=== PATIENT | male | born 1930 | race Caucasian/White ===

== ENCOUNTER 2017-05-02 10:19 | Emergency (ER) | payer MEDICARE, BC ==
[2017-05-02 10:24] VITALS: BP 141/70
[2017-05-02] MEDS ORDERED: Albuterol/Ipratropium 3.0-0.5 MG/3 ML Neb Soln NEB ONE ×2 (11:17→11:19)
--- NOTE | 2017-05-02 11:27 | EDM.PDOC ---
ED HPI GENERAL MEDICAL PROBLEM - General Chief Complaint: General Stated Complaint: Sinus drainage, cough, fever Time Seen by Provider: 05/02/17 11:11 Source of Information: Reports: Patient, Family History Limitations: Reports: No Limitations - History of Present Illness INITIAL COMMENTS - FREE TEXT/NARRATIVE: This patient is an 86 year old male that presents to the ER. Patient has with him at bedside. Patient reports that about 2 weeks ago he started having congestion sinuses and drainage. He was placed on abx. Patent reports he did get some better, but then again on he began to have increased congestion, chest congestion, cough. Patient he saw his PCP on and was prescribed augmentin. Patient reports then yesterday he developed fever and increased chest congestion. The patient presents to the ER today complaining of generalized weakness, drainage, productive cough, chest congestion, mild shortness of breath. Patient is alert and oriented. He is conversing in full and complete sentences without difficulty. Patient is coughing a lot. Patient denies adame, dizziness, n, v, d, rash, chest pain, abd pain, urinary/bowel changes. Onset Date: 04/29/17 Duration: Getting Worse Location: Reports: Face, Chest Severity: Mild Improves with: Reports: None Worsens with: Reports: None Associated Symptoms: Reports: Cough, cough w sputum, Shortness of Breath, Weakness (generally). Denies: Confusion, Chest Pain, Diaphoresis, Fever/Chills , Headaches, Loss of Appetite, Malaise, Nausea/Vomiting, Rash, Seizure, Syncope Left Thoracic Pain Score (Numeric/FACES): 2 - Related Data Allergies Allergy/AdvReac Type Severity Reaction Status Date / Time No Known Allergies Allergy Verified 05/02/17 10:24 Home Meds: Home Meds Simvastatin [Simvastatin] 40 mg PO DAILY 09/18/14 [History] metFORMIN HCl [Metformin HCl] 850 mg PO DAILY 09/18/14 [History] Acetaminophen [Tylenol] 650 mg PO Q4H PRN 05/02/17 [History] Amoxicillin [Amoxil] 875 mg PO BID 05/02/17 [History] Aspirin [Adult Low Dose Aspirin EC] 81 mg PO DAILY 05/02/17 [History] Fluticasone Propionate [Flovent] 2 sprays NASBOTH DAILY PRN 05/02/17 [History] Hydrochlorothiazide 25 mg PO DAILY 05/02/17 [History] Ipratropium [place] 1 spray NASBOTH BID 05/02/17 [History] Metoprolol Tartrate 25 mg PO BID 05/02/17 [History] Multivitamin [Multi-Day Vitamins] 1 tab PO DAILY 05/02/17 [History] amLODIPine Besylate [Amlodipine Besylate] 10 mg PO DAILY 05/02/17 [History] Past Medical History HEENT History: Reports: Allergic Rhinitis, Cataract, Sinusitis Cardiovascular History: Reports: High Cholesterol, Hypertension Endocrine/Metabolic History: Reports: Diabetes, Type II Oncologic (Cancer) History: Reports: Prostate - Past Surgical History HEENT Surgical History: Reports: Cataract Surgery, Tonsillectomy Musculoskeletal Surgical History: Reports: Shoulder Surgery Social & Family History - Tobacco Use Smoking Status *Q: Never Smoker - Recreational Drug Use Recreational Drug Use: No ED ROS GENERAL - Review of Systems Review Of Systems: See Below Constitutional: Reports: Fever, Chills, Malaise, Weakness HEENT: Reports: Rhinitis, Sinus Problem Respiratory: Reports: Shortness of Breath, Cough, Sputum Cardiovascular: Reports: No Symptoms Endocrine: Reports: No Symptoms GI/Abdominal: Reports: No Symptoms : Reports: No Symptoms Musculoskeletal: Reports: No Symptoms Skin: Reports: No Symptoms Neurological: Reports: No Symptoms Psychiatric: Reports: No Symptoms Hematologic/Lymphatic: Reports: No Symptoms Immunologic: Reports: No Symptoms ED EXAM, GENERAL - Physical Exam Exam: See Below Exam Limited By: No Limitations General Appearance: Alert, WD/WN, No Apparent Distress Eye Exam: Bilateral Eye: Normal Inspection, PERRL Ears: Normal External Exam, Normal Canal, Hearing Grossly Normal, Normal TMs Ear Exam: Bilateral Ear: Auricle Normal, Canal Normal, TM normal Nose: Normal Inspection, Normal Mucosa, No Blood Throat/Mouth: Normal Inspection, Normal Lips, Normal Teeth, Normal Gums, Normal Oropharynx, Normal Voice, No Airway Compromise, Other (post nasal gtt. ) Head: Atraumatic, Normocephalic Neck: Normal Inspection, Supple, Non-Tender, Full Range of Motion Respiratory/Chest: No Respiratory Distress, No Accessory Muscle Use, Chest Non- Tender, Rhonchi (throughout. ), Wheezing (mild expiratory BUL. ). No: Accessory Muscle Use, Retractions, Splinting Cardiovascular: Normal Peripheral Pulses, Regular Rate, Rhythm, No Edema, No Gallop, No JVD, No Murmur, No Rub Peripheral Pulses: 2+: Radial (L), Radial (R), Posterior Tibial (L), Posterior Tibial (R) GI/Abdominal: Soft, Non-Tender, No Organomegaly, No Distention, No Mass Back Exam: Normal Inspection, Full Range of Motion Extremities: Normal Inspection, Normal Range of Motion, Non-Tender, No Pedal Edema, Normal Capillary Refill Neurological: Alert, Oriented, Normal Cognition, Normal Gait, No Motor/Sensory Deficits Psychiatric: Normal Affect, Normal Mood Skin Exam: Warm, Dry, Intact, Normal Color, No Rash Lymphatic: No Adenopathy Course - Vital Signs Last Recorded V/S: Last Vital Signs Temp 100.0 F 05/02/17 10:21 Pulse 74 05/02/17 10:21 Resp 20 05/02/17 10:21 BP 141/70 H 05/02/17 10:21 Pulse Ox 96 05/02/17 10:21 - Orders/Labs/Meds Orders: Active Orders 24 hr Category Date Time Status RT Aerosol Therapy [RC] ASDIRECTED Care 05/02/17 11:18 Active RT Aerosol Therapy [RC] ASDIRECTED Care 05/02/17 11:19 Active Chest 2V [CR] Stat Exams 05/02/17 10:41 Taken CULTURE BLOOD [BC] Stat Lab 05/02/17 11:10 Received CULTURE BLOOD [BC] Stat Lab 05/02/17 11:15 Received Albuterol [Take Home: Albuterol 0.083%, 4 Neb Pack] Med 05/02/17 11:51 Once 1 packet NEB ONETIME ONE Sodium Chloride 0.9% [Normal Saline] 500 ml Med 05/02/17 11:45 Active IV .BOLUS Blood Culture x2 Reflex Set [OM.PC] Stat Oth 05/02/17 10:41 Ordered Medication Orders Sodium Chloride (Normal Saline) 500 mls @ 1,000 mls/hr IV .BOLUS HERMES Labs: Laboratory Tests 05/02/17 05/02/17 05/02/17 Range/Units 11:10 11:10 11:10 WBC 6.0 (5.0-10.0) 10^3/uL RBC 4.79 (4.50-6.00) 10^6/uL Hgb 14.4 (14.0-18.0) g/dL Hct 41.7 (40.0-54.0) % MCV 87.1 (82.0-94.0) fL MCH 30.1 (27.0-32.0) pg MCHC 34.5 (33.0-38.0) g/dL RDW Coeff of Torsten 13.4 (11.0-15.0) % Plt Count 151 (150-400) 10^3/uL Neut % (Auto) 67.2 (35-85) % Lymph % (Auto) 13.0 (10-55) % [place] % (Auto) 16.8 H (0-16) % Eos % (Auto) 2.3 (0-5) % Baso % (Auto) 0.7 (0-3) % Neut # (Auto) 4.04 (1.80-7.00) 10^3/uL Lymph # (Auto) 0.78 L (1.00-4.80) 10^3/uL [place] # (Auto) 1.01 H (0.00-0.80) 10^3/uL Eos # (Auto) 0.14 (0.00-0.45) 10^3/uL Baso # (Auto) 0.04 10^3/uL Sodium 137 (136-145) mEq/L Potassium 3.8 (3.5-5.0) mEq/L Chloride 97 L (98-106) mEq/L Carbon Dioxide 32 (21-32) mmol/L BUN 18 (7-18) mg/dL Creatinine 1.5 H (0.7-1.3) mg/dL Est Cr Clr Drug Dosing 36.04 mL/min Estimated GFR (MDRD) 44 L (>=60) mL/min Glucose 146 H (75-99) mg/dL Lactic Acid 1.3 (0.4-2.0) mmol/L Calcium 9.3 (8.4-10.1) mg/dL Total Bilirubin 0.7 (0.0-1.0) mg/dL AST 20 (15-37) U/L ALT 24 (12-78) U/L Alkaline Phosphatase 63 (46-116) U/L C-Reactive Protein 2.1 H (0.2-0.8) mg/dL Total Protein 8.2 (6.4-8.2) g/dL Albumin 4.2 (3.4-5.0) g/dL Meds: Medications Generic Name Dose Route Start Last Admin Trade Name Freq PRN Reason Stop Dose Admin Sodium Chloride 500 mls @ 1,000 mls/hr 05/02/17 11:45 Normal Saline IV .BOLUS HERMES Discontinued Medications Generic Name Dose Route Start Last Admin Trade Name Freq PRN Reason Stop Dose Admin Albuterol/Ipratropium 3 ml 05/02/17 11:17 05/02/17 11:21 Duoneb 3.0-0.5 Mg/3 Ml NEB 05/02/17 11:18 3 ml ONETIME ONE Administration Albuterol/Ipratropium 3 ml 05/02/17 11:19 Duoneb 3.0-0.5 Mg/3 Ml NEB 05/02/17 11:20 ONETIME ONE Ceftriaxone Sodium 1 gm 05/02/17 11:42 Rocephin IVPUSH 05/02/17 11:43 ONETIME ONE Ibuprofen 800 mg 05/02/17 11:34 Motrin PO 05/02/17 11:35 ONETIME ONE Methylprednisolone Sodium Succinate 125 mg 05/02/17 11:41 Solu-Medrol IVPUSH 05/02/17 11:42 NOW STA - Radiology Interpretation Free Text/Narrative:: CXR: COPD changes. No focal infiltrates seen. No edema. Radiologist to view. - Re-Assessments/Exams Free Text/Narrative Re-Assessment/Exam: 05/02/17 11:52 Patient lungs after treatment are clear. Patient reports he is coughing much less and feels much improved. Will discharge. Departure - Departure Time of Disposition: 11:46 Disposition: Home, Self-Care 01 Condition: Fair Clinical Impression: Renal insufficiency, Generalized weakness Acute bronchitis Qualifiers: Bronchitis organism: unspecified organism Qualified Code(s): J20.9 - Acute bronchitis, unspecified - Discharge Information Instructions: Acute Bronchitis, [id number] Referrals: Prosper Sanchez MD [Primary Care Provider] - Forms: ED Department Discharge Additional Instructions: Followup with your primary care provider Return to the ER for worsening of condition or any emergent concerns Increase fluids Tylenol or Motrin for fever STOP Amoxicillin Levaquin 750mg 1 pill once a day for 7 days #7 no refill Medrol Dose Pack as directed #1 no refill Breathing treatment machine send home Duoneb 1 neb every 4-6 hours as needed for shortness of breath #60 no refill #4 take home - My Orders Last 24 Hours: My Active Orders 05/02/17 10:41 Chest 2V [CR] Stat Blood Culture x2 Reflex Set [OM.PC] Stat 05/02/17 11:10 CULTURE BLOOD [BC] Stat 05/02/17 11:15 CULTURE BLOOD [BC] Stat 05/02/17 11:18 RT Aerosol Therapy [RC] ASDIRECTED 05/02/17 11:19 RT Aerosol Therapy [RC] ASDIRECTED 05/02/17 11:45 Sodium Chloride 0.9% [Normal Saline] 500 ml IV .BOLUS 05/02/17 11:51 Albuterol [Take Home: Albuterol 0.083%, 4 Neb Pack] 1 packet NEB ONETIME ONE - Assessment/Plan Last 24 Hours: My Active Orders 05/02/17 10:41 Chest 2V [CR] Stat Blood Culture x2 Reflex Set [OM.PC] Stat 05/02/17 11:10 CULTURE BLOOD [BC] Stat 05/02/17 11:15 CULTURE BLOOD [BC] Stat 05/02/17 11:18 RT Aerosol Therapy [RC] ASDIRECTED 05/02/17 11:19 RT Aerosol Therapy [RC] ASDIRECTED 05/02/17 11:45 Sodium Chloride 0.9% [Normal Saline] 500 ml IV .BOLUS 05/02/17 11:51 Albuterol [Take Home: Albuterol 0.083%, 4 Neb Pack] 1 packet NEB ONETIME ONE Plan: PLEASE SEE RN NOTE FOR PFSH.
[2017-05-02] MEDS ORDERED: Ibuprofen 200 MG Tab PO ONE (11:34)
[2017-05-02] MEDS ORDERED: methylPREDNISolone Sodium Succinate 125 MG/2 ML SDV IVPUSH STA (11:41)
[2017-05-02] MEDS ORDERED: cefTRIAXone 1 GM Vial IVPUSH ONE (11:42)
[2017-05-02] MEDS ORDERED: Sodium Chloride 0.9% 500 ML IV SCH (11:45)
[2017-05-02] MEDS ORDERED: Take Home: Albuterol 0.083% 2.5 MG/3 ML Neb Soln, 4 Neb Pack NEB ONE (11:51)
== END 2017-05-02 13:07 | disposition home or self-care (01) ==
LOC: CC.ED 10:19
DX: J20.9 Acute bronchitis, unspecified (principal); R53.1 Weakness; N28.9 Disorder of kidney and ureter, unspecified; I10 Essential (primary) hypertension; E11.9 Type 2 diabetes mellitus without complications; E78.00 Pure hypercholesterolemia, unspecified; Z79.84 Long term (current) use of oral hypoglycemic drugs; Z79.899 Other long term (current) drug therapy; Z79.82 Long term (current) use of aspirin
CPT/HCPCS: 36415; 71020; 80053; 83605; 85025; 86140; 87040; 87804; 94640; 96361; 96374; 96375; 99284; A9270; J0696; J2930; J7040; 99283

== ENCOUNTER 2021-03-11 10:20 | Observation (INO) | payer MEDICARE, BC ==
[2021-03-11 11:14] VITALS: BP 102/64; PULSE 56
[2021-03-11] MEDS ORDERED: Sodium Chloride 0.9% 250 ML IV SCH (11:30)
--- NOTE | 2021-03-11 14:42 | EDM.PDOC ---
ED HPI GENERAL MEDICAL PROBLEM - General Chief Complaint: Syncope Stated Complaint: LIGHT HEADED EARLIER Time Seen by Provider: 03/11/21 10:44 Source of Information: Reports: Patient, Family History Limitations: Reports: No Limitations - History of Present Illness INITIAL COMMENTS - FREE TEXT/NARRATIVE: Emmie is an 89 yo male who presents to the ED, accompanied by family, with concerns of a presyncopal/syncopal episode. Emmie states he wasn't feeling right and was out in the shop with his son. Admits he decided to walk back to the house and felt as if he was going to pass out about half ways to the house. He states he lied down on the ground so he didn't pass out. Son thinks he did have a syncopal episode and fell to the ground. He admits he went out to help him make it the rest of the way to the house and was unsteady on his feet. Emmie states he doesn't feel that way anymore but just feels a little off. - Related Data Allergies Allergy/AdvReac Type Severity Reaction Status Date / Time No Known Allergies Allergy Verified 03/11/21 10:30 Home Meds: Home Meds Simvastatin 40 mg PO DAILY 09/18/14 [History] metFORMIN HCl [Metformin HCl] 850 mg PO DAILY 09/18/14 [History] Acetaminophen [Tylenol] 650 mg PO Q4H PRN 05/02/17 [History] Aspirin [Adult Low Dose Aspirin EC] 81 mg PO DAILY 05/02/17 [History] Ipratropium [place] 1 spray NASBOTH BID PRN 05/02/17 [History] Metoprolol Tartrate 25 mg PO BID 05/02/17 [History] Multivitamin [Multi-Day Vitamins] 1 tab PO DAILY 05/02/17 [History] amLODIPine Besylate [Amlodipine Besylate] 10 mg PO DAILY 05/02/17 [History] hydroCHLOROthiazide [Hydrochlorothiazide] 25 mg PO DAILY 05/02/17 [History] Past Medical History HEENT History: Reports: Allergic Rhinitis, Cataract, Hard of Hearing, Sinusitis Cardiovascular History: Reports: High Cholesterol, Hypertension Genitourinary History: Reports: Other (See Below) Other Genitourinary History: prostrate cancer 10 years ago with radiation done Musculoskeletal History: Reports: Arthritis Endocrine/Metabolic History: Reports: Diabetes, Type II Oncologic (Cancer) History: Reports: Basal Cell Carcinoma, Prostate - Past Surgical History HEENT Surgical History: Reports: Cataract Surgery, Tonsillectomy Cardiovascular Surgical History: Reports: None Musculoskeletal Surgical History: Reports: Shoulder Surgery Social & Family History - Tobacco Use Tobacco Use Status *Q: Never Tobacco User ED ROS GENERAL - Review of Systems Review Of Systems: See Below Constitutional: Denies: Fever, Chills HEENT: Reports: No Symptoms. Denies: Vision Change Respiratory: Reports: No Symptoms Cardiovascular: Reports: Lightheadedness, Syncope. Denies: Chest Pain, Palpitations GI/Abdominal: Reports: No Symptoms : Reports: No Symptoms Musculoskeletal: Reports: No Symptoms Skin: Reports: No Symptoms Neurological: Reports: Syncope, Difficulty Walking. Denies: Confusion, Di zziness, Headache, Numbness, Paresthesia, Pre-Existing Deficit, Weakness Psychiatric: Reports: No Symptoms - Physical Exam Exam: See Below Exam Limited By: No Limitations General Appearance: Alert, WD/WN, No Apparent Distress Eye Exam: Bilateral Eye: EOMI, Normal Inspection, PERRL Ears: Normal External Exam, Normal Canal, Normal TMs, Hearing Loss Nose: Normal Inspection, Normal Mucosa, No Blood Throat/Mouth: Normal Inspection, Normal Lips, Normal Teeth, Normal Gums, Normal Oropharynx, Normal Voice, No Airway Compromise Head Exam: Atraumatic, Normocephalic. No: Scalp Lacerations, Scalp Abrasions, Scalp Ecchymosis, Facial Abrasions, Facial Ecchymosis Neck: Normal Inspection, Supple. No: Tender Midline Respiratory/Chest: No Respiratory Distress, Lungs Clear, Normal Breath Sounds, No Accessory Muscle Use Cardiovascular: Regular Rate, Rhythm, No Edema, No Murmur GI/Abdominal: Normal Bowel Sounds, Soft, Non-Tender, No Distention Neuro Exam (Abbreviated): Alert, Oriented, CN II-XII Intact, Normal Cognition, No Motor/Sensory Deficits Back Exam: Normal Inspection Extremities: Normal Inspection, No Pedal Edema Psychiatric: Normal Affect, Normal Mood Skin Exam: Warm, Dry, Intact, Normal Color, No Rash #1 Interpretation EKG Date: 03/11/21 Rhythm: Other (sinus bradycardia) Comparison: NA - No Prior EKG Course - Vital Signs Last Recorded V/S: Last Vital Signs Temp 96.4 F L 03/11/21 10:25 Pulse 56 L 10/26/21 11:13 Resp 14 03/11/21 11:13 BP 102/64 03/11/21 11:13 Pulse Ox 98 03/11/21 11:13 - Orders/Labs/Meds Orders: Active Orders 24 hr Category Date Time Status Head wo Cont [CT] Stat Exams 03/11/21 11:21 Taken Sodium Chloride 0.9% [Normal Saline] 250 ml Med 03/11/21 11:30 Active IV ASDIRECTED Medication Orders Sodium Chloride (Normal Saline) 250 mls @ 250 mls/hr IV ASDIRECTED HERMES Last Admin: 03/11/21 11:43 Dose: 250 mls/hr Documented by: CHANDRIKA Labs: Laboratory Tests 03/11/21 03/11/21 03/11/21 Range/Units 10:50 10:50 10:50 WBC 9.5 (4.0-11.0) 10^3/uL RBC 3.78 L (4.50-6.00) x10^6/uL Hgb 11.6 L (14.0-18.0) g/dL Hct 33.1 L (42.0-52.0) % MCV 87.6 (83.0-97.0) fL MCH 30.7 (27.0-32.0) pg MCHC 35.0 (32.0-36.0) g/dL RDW Coeff of [place] 12.8 (11.0-15.0) % Plt Count 170 (150-400) 10^3/uL Immature Gran % (Auto) 0.4 (0.0-4.9) % Neut % (Auto) 80.0 H (41-71) % Lymph % (Auto) 10.8 L (24-44) % [place] % (Auto) 7.6 (0-10) % Eos % (Auto) 0.8 (0-6) % Baso % (Auto) 0.4 (0-1) % Neut # (Auto) 7.56 (1.80-8.00) x10^3/uL Lymph # (Auto) 1.02 (0.60-5.00) 10^3/uL [place] # (Auto) 0.72 (0.00-1.50) 10^3/uL Eos # (Auto) 0.08 (0.00-1.50) 10^3/uL Baso # (Auto) 0.04 (0.00-0.50) 10^3/uL Immature Gran # (Auto) 0.04 (0.00-0.49) 10^3/uL ESR 14 (0-15) mm/hr PT 11.4 (9.7-12.3) SEC INR 1.05 (0.92-1.18) Sodium 138 (136-145) mEq/L Potassium 5.1 H (3.5-5.0) mEq/L Chloride 102 (98-106) mEq/L Carbon Dioxide 26 (21-32) mmol/L BUN 34 H (7-18) mg/dL Creatinine 1.8 H (0.7-1.3) mg/dL Est Cr Clr Drug Dosing 26.77 mL/min Estimated GFR (MDRD) 36 L (>=60) mL/min Glucose 197 H D (75-99) mg/dL Calcium 9.1 (8.4-10.1) mg/dL Total Bilirubin 0.7 (0.0-1.0) mg/dL AST 14 L (15-37) U/L ALT 20 (12-78) U/L Alkaline Phosphatase 51 (46-116) U/L Creatine Kinase 53 (35-232) U/L Troponin I High Sens 7.2 (<=76) pg/mL Total Protein 6.5 (6.4-8.2) g/dL Albumin 3.6 (3.4-5.0) g/dL Urine Color (YELLOW) Urine Appearance (CLEAR) Urine pH (4.5-8.0) Ur Specific [place] (1.003-1.020) Urine Protein (NEGATIVE) mg/dL Urine Glucose (UA) (NEGATIVE) mg/dL Urine Ketones (NEGATIVE) mg/dL Urine Occult Blood (NEGATIVE) Urine Nitrite (NEGATIVE) Urine Bilirubin (NEGATIVE) Urine Urobilinogen (0.2-1.0) EU/dL Ur Leukocyte Esterase (NEGATIVE) 03/11/21 Range/Units 10:56 WBC (4.0-11.0) 10^3/uL RBC (4.50-6.00) x10^6/uL Hgb (14.0-18.0) g/dL Hct (42.0-52.0) % MCV (83.0-97.0) fL MCH (27.0-32.0) pg MCHC (32.0-36.0) g/dL RDW Coeff of [place] (11.0-15.0) % Plt Count (150-400) 10^3/uL Immature Gran % (Auto) (0.0-4.9) % Neut % (Auto) (41-71) % Lymph % (Auto) (24-44) % [place] % (Auto) (0-10) % Eos % (Auto) (0-6) % Baso % (Auto) (0-1) % Neut # (Auto) (1.80-8.00) x10^3/uL Lymph # (Auto) (0.60-5.00) 10^3/uL [place] # (Auto) (0.00-1.50) 10^3/uL Eos # (Auto) (0.00-1.50) 10^3/uL Baso # (Auto) (0.00-0.50) 10^3/uL Immature Gran # (Auto) (0.00-0.49) 10^3/uL ESR (0-15) mm/hr PT (9.7-12.3) SEC INR (0.92-1.18) Sodium (136-145) mEq/L Potassium (3.5-5.0) mEq/L Chloride (98-106) mEq/L Carbon Dioxide (21-32) mmol/L BUN (7-18) mg/dL Creatinine (0.7-1.3) mg/dL Est Cr Clr Drug Dosing mL/min Estimated GFR (MDRD) (>=60) mL/min Glucose (75-99) mg/dL Calcium (8.4-10.1) mg/dL Total Bilirubin (0.0-1.0) mg/dL AST (15-37) U/L ALT (12-78) U/L Alkaline Phosphatase (46-116) U/L Creatine Kinase (35-232) U/L Troponin I High Sens (<=76) pg/mL Total Protein (6.4-8.2) g/dL Albumin (3.4-5.0) g/dL Urine Color Yellow (YELLOW) Urine Appearance Clear (CLEAR) Urine pH 5.5 (4.5-8.0) Ur Specific [place] >= 1.030 H (1.003-1.020) Urine Protein Negative (NEGATIVE) mg/dL Urine Glucose (UA) 100 H (NEGATIVE) mg/dL Urine Ketones Negative (NEGATIVE) mg/dL Urine Occult Blood Negative (NEGATIVE) Urine Nitrite Negative (NEGATIVE) Urine Bilirubin Negative (NEGATIVE) Urine Urobilinogen 1.0 (0.2-1.0) EU/dL Ur Leukocyte Esterase Negative (NEGATIVE) Meds: Medications Generic Name Dose Route Start Last Admin Trade Name Freq PRN Reason Stop Dose Admin Sodium Chloride 250 mls @ 250 mls/hr 03/11/21 11:30 03/11/21 11:43 Normal Saline IV 250 mls/hr ASDIRECTED HERMES Administration Departure - Departure Time of Disposition: 14:46 Disposition: Home, Self-Care 01 Clinical Impression: Pre-syncope - Discharge Information *PRESCRIPTION DRUG MONITORING PROGRAM REVIEWED*: No *COPY OF PRESCRIPTION DRUG MONITORING REPORT IN PATIENT RAMA: No Sepsis Event Note (ED) - Evaluation Sepsis Screening Result: No Definite Risk - Focused Exam Vital Signs: Vital Signs Temp Pulse Resp BP Pulse Ox 03/11/21 11:13 56 L 14 102/64 98 03/11/21 10:25 96.4 F L 55 L 16 117/54 L 98 - Problem List & Annotations (1) Pre-syncope SNOMED Code(s): 602555511 Code(s): R55 - SYNCOPE AND COLLAPSE Status: Acute Current Visit: Yes - My Orders Last 24 Hours: My Active Orders 03/11/21 11:21 Head wo Cont [CT] Stat 03/11/21 11:30 Sodium Chloride 0.9% [Normal Saline] 250 ml IV ASDIRECTED - Assessment/Plan Last 24 Hours: My Active Orders 03/11/21 11:21 Head wo Cont [CT] Stat 03/11/21 11:30 Sodium Chloride 0.9% [Normal Saline] 250 ml IV ASDIRECTED Plan: Laboratory work was overall unremarkable. CT head was negative. EKG stable. Discussed with Emmie results, which he admits to feeling back to his normal self. Discussed observation status with telemetry, which he declined today. Pat ient to be discharged home with Zio Patch which was placed by radiology today. Family verbalized understanding. Encourage Emmie to stay well hydrated as well. Patient is to follow up with primary in 1 week for recheck.
== END 2021-03-11 15:10 | disposition home or self-care (01) ==
LOC: CC.ED 10:20 → CC.MS 12:37
PROVIDERS: ADMIT Physician Assistant Medical; ATTEND Family Medicine
DX: R55 Syncope and collapse (principal); E78.00 Pure hypercholesterolemia, unspecified; I10 Essential (primary) hypertension; E11.9 Type 2 diabetes mellitus without complications; Z79.899 Other long term (current) drug therapy; Z79.82 Long term (current) use of aspirin; Z79.84 Long term (current) use of oral hypoglycemic drugs; Z98.890 Other specified postprocedural states
CPT/HCPCS: 36415; 70450; 80053; 81003; 82550; 84484; 85025; 85610; 85651; 93005; 99284; J7050; 93010

== ENCOUNTER 2021-05-09 08:45 | Emergency (ER) | payer MEDICARE, BC ==
--- NOTE | 2021-05-09 08:55 | EDM.PDOC ---
ED HPI GENERAL MEDICAL PROBLEM - General Chief Complaint: General Stated Complaint: ear pain Time Seen by Provider: 05/09/21 08:46 Source of Information: Reports: Patient History Limitations: Reports: No Limitations - History of Present Illness INITIAL COMMENTS - FREE TEXT/NARRATIVE: This is a pleasant 89-year-old male that presents to the emergency department with right-sided ear pain. Patient states that the pain woke him up during the night and subsequently has been up since 2 AM. Patient has had similar pain in the past comes and goes. The patient denies any fever, chills, shortness of breath, dental pain, or other signs of illness. Patient reports that he has intermittent sharp pains from the right ear during the night. Alert and oriented x3. He denies any trauma to the ear. Does have a history of developing wax in his ears. Onset: Today Location: Reports: Other (Right ear) Quality: Reports: Sharp Severity: Mild Improves with: Reports: None Worsens with: Reports: None - Related Data Allergies Allergy/AdvReac Type Severity Reaction Status Date / Time No Known Allergies Allergy Verified 05/09/21 08:48 Home Meds: Home Meds Simvastatin 40 mg PO DAILY 09/18/14 [History] metFORMIN HCl [Metformin HCl] 850 mg PO DAILY 09/18/14 [History] Acetaminophen [Tylenol] 650 mg PO Q4H PRN 05/02/17 [History] Aspirin [Adult Low Dose Aspirin EC] 81 mg PO DAILY 05/02/17 [History] Ipratropium Lander 1 spray NASBOTH BID PRN 05/02/17 [History] Metoprolol Tartrate 25 mg PO BID 05/02/17 [History] Multivitamin [Multi-Day Vitamins] 1 tab PO DAILY 05/02/17 [History] amLODIPine Besylate [Amlodipine Besylate] 10 mg PO DAILY 05/02/17 [History] hydroCHLOROthiazide [Hydrochlorothiazide] 25 mg PO DAILY 05/02/17 [History] Amoxicillin 875 mg PO TID 7 Days #21 tablet 05/09/21 [Rx] Past Medical History HEENT History: Reports: Allergic Rhinitis, Cataract, Hard of Hearing, Sinusitis Cardiovascular History: Reports: High Cholesterol, Hypertension Genitourinary History: Reports: Other (See Below) Other Genitourinary History: 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 ED EXAM, GENERAL - Physical Exam Exam: See Below Exam Limited By: No Limitations General Appearance: Alert, WD/WN, No Apparent Distress Ears: Normal External Exam, Hearing Loss, Other (Excess cerumen) Ear Exam: Right Ear: TM Red, Other (Erythema right ear canal) Nose: Normal Inspection, Normal Mucosa, No Blood Throat/Mouth: Normal Inspection, Normal Lips, Normal Gums, Normal Oropharynx, Normal Voice, No Airway Compromise Head: Atraumatic, Normocephalic Neck: Normal Inspection, Supple, Non-Tender Respiratory/Chest: No Respiratory Distress, Lungs Clear. No: Crackles, Rales, Rhonchi, Wheezing Cardiovascular: Regular Rate, Rhythm, No Gallop, No Rub GI/Abdominal: Soft, Non-Tender, No Distention (Male) Exam: Deferred Rectal (Males) Exam: Deferred Back Exam: Normal Inspection Neurological: Alert, Oriented, Normal Cognition, Normal Gait Psychiatric: Normal Affect, Normal Mood Skin Exam: Warm, Dry, Intact Lymphatic: No Adenopathy Course - Re-Assessments/Exams Free Text/Narrative Re-Assessment/Exam: This is a 89-year-old male patient that presented with right-sided ear pain that started during the night. Upon assessment your canal was impacted with cerumen. The ear canal was irrigated with warm water solution. Tympanic membrane and ear canal with erythema. Plan to treat for a right otitis media. Amoxicillin 875 mg 3 times daily p.o. was prescribed to the pharmacy. Patient may take Tylenol for discomfort. If symptoms are not improving he should fo llow-up with his primary care provider next week. May call or return if any questions or concerns. Departure - Departure Time of Disposition: 09:18 Disposition: Home, Self-Care 01 Condition: Good Clinical Impression: Otitis media Qualifiers: Otitis media type: unspecified Chronicity: acute Qualified Code(s): H66.90 - Otitis media, unspecified, unspecified ear - Discharge Information *PRESCRIPTION DRUG MONITORING PROGRAM REVIEWED*: Not Applicable *COPY OF PRESCRIPTION DRUG MONITORING REPORT IN PATIENT RAMA: Not Applicable Instructions: Otitis Media, Adult, [id number] Additional Instructions: 1. Amoxicillin to be taken three times per day for 7 days. Prescription was sent to your pharmacy. 2. May use Tylenol for pain or fever. 3. Follow-up with primary care provider next week if symptoms not improving. 4. Call or return if questions or concerns.
[2021-05-09 09:40] VITALS: BP 171/80
== END 2021-05-09 09:30 | disposition home or self-care (01) ==
LOC: CC.ED 08:45
DX: H66.91 Otitis media, unspecified, right ear (principal); E78.00 Pure hypercholesterolemia, unspecified; E11.9 Type 2 diabetes mellitus without complications; I10 Essential (primary) hypertension; Z79.82 Long term (current) use of aspirin; Z79.899 Other long term (current) drug therapy
CPT/HCPCS: 99282